=== PATIENT | female | born 1960 | race Caucasian/White ===

== ENCOUNTER 2020-05-06 11:21 | Emergency (ER) | payer OTHER, SELFPAY ==
--- NOTE | ~2020-05-06 | CT_ITS ---
EXAMINATION: CTA chest PE protocol DATE: 05/06/2020 14:14 INDICATION: Shortness of breath, right-sided chest pain. Elevated d-dimer. TECHNIQUE: Computed tomography angiography (CTA) of the chest was performed with 100 mL Omnipaque-350 intravenous contrast timed to evaluate the pulmonary arteries. Coronal maximum intensity projection 3D-reconstructions were created by the technologist. Automated exposure control and iterative reconst ruction technique were employed. Exam dose: 596.53 mGy-cm total exam DLP. COMPARISON: 05/06/2022 view chest FINDINGS: There is moderate enhancement of the pulmonary arteries and no evidence of pulmonary emboli sm. No thoracic aortic aneurysm or dissection. No hilar or mediastinal mass lesion or lymphadenopathy. Normal heart size. No pericardial or pleural effusion. There is a small sliding hiatal hernia. No pulmonary infiltrate or consolidation or pulmonary mass lesion. There is degenerative disc disease and lower cervical spine. There is degenerative spurring of the th oracic spine. IMPRESSION: No evidence of pulmonary embolism Reviewed, dictated and finalized at [facility] Reviewed, dictated and finalized at [facility].
--- NOTE | ~2020-05-06 | US_ITS ---
EXAMINATION: US right upper quadrant DATE: 05/06/2020 15:40 INDICATION: Right upper quadrant abdominal pain. Chest pain. TECHNIQUE: Multiple grayscale and Doppler ultrasound images of the abdomen were obtained. COMPARISON: Chest CT 05/06/2020 FINDINGS: The visualized portions of the head of the pancreas are normal. The liver is normal without focal lesion. There is normal flow in main portal vein. The gallbladder is distended. No visible gal lstones. Gallbladder wall thickening is noted. There was no sonographic Ballesteros sign. The common duct is normal and measures 3 mm. IMPRESSION: 1. Gallbladder distention and gallbladder wall thickening, which is indeterminate for acute cholecyst itis. Gallbladder wall thickening may also be seen with chronic cholecystitis, chronic liver disease, or interstitial edema. Consider hepatobiliary scintigraphy. Reviewed, dictated and finalized at [facility]. IMPRESSION: 1. Gallbladder distention and gallbladder wall thickening, which is indetermina te for acute cholecystitis. Gallbladder wall thickening may also be seen with c hronic cholecystitis, chronic liver disease, or interstitial edema. Consider he patobiliary scintigraphy.
--- NOTE | ~2020-05-06 | XR_ITS ---
XR chest 2V DATE: 05/06/2020 12:16 INDICATION: Midsternal chest pain TECHNIQUE: AP and lateral views COMPARISON: None FINDINGS: Normal heart size. No hilar or mediastinal enlargement. No pulmonary infiltrate or consolid ation, pleural effusion or pulmonary vascular congestion or pneumothorax. Diffuse osteopenia. There is mild degenerative spurring of the thoracic and lumbar spine. IMPRESSION: No active cardiopulmonary disease Reviewed, dictated and finalized at [facility].
[2020-05-06 11:32] VITALS: BP 171/88; PULSE 107; RESP 18; TEMP 36.4; O2SAT 100
--- NOTE | 2020-05-06 11:32 | ECG_ITS ---
Measurements Intervals [place] Rate: 106 P: 61 AK: 130 QRS: -35 QRSD: 95 T: 31 QT: 338 QTc: 449 Interpretive Statements SINUS TACHYCARDIA POSSIBLE LEFT ATRIAL ENLARGEMENT LEFT AXIS DEVIATION BORDERLINE R WAVE PROGRESSION, ANTERIOR LEADS BORDERLINE T WAVE ABNORMALITY- INFERIOR LEADS BASELINE ARTIFACT- II, III, AVR, AVL, AVF, V6 ABNORMAL ECG Electronically Signed On 05-06-2020 11:49:11 CDT by Eric Christianson D.O.
[2020-05-06 11:43] LABS: Basophils Absolute Auto 0.1 K/mm3 (0.0-0.1); Basophils Percent Auto 0.6 % (0.2-1.2); Eosinophils Absolute Auto 0.2 K/mm3 (0-0.3); Eosinophils Percent Auto 1.8 % (0-4.4); Hematocrit 49.6 % (37.0-47.0); Immature Granulocyte Absolute 0.02 K/mm3 (0.00-0.031); Immature Granulocyte Percent A 0.2 % (0-0.5); Lymphocytes Absolute Auto 2.39 K/mm3 (0.9-3.2); Lymphocytes Percent Auto 28.9 % (18.3-44.2); Mean Corpuscular HGB Conc 32.3 g/dl (32-36); Mean Corpuscular Hemoglobin 29.3 pg (26-34); Mean Corpuscular Volume 90.7 fl (80-100); Mean Platelet Volume 9.7 fl (7.4-10.4); Monocytes Absolute Auto 0.4 K/mm3 (0.1-0.6); Monocytes Percent Auto 4.8 % (2.6-8.5); Neutrophils Absolute Auto 5.3 K/mm3 (1.3-6.7); Neutrophils Percent Auto 63.7 % (45.5-73.1); Platelet Count Result 286 k/mm3 (150-375); Red Blood Count 5.47 M/mm3 (4.2-5.4); Red Cell Distribution Width 13.2 % (11.5-14.5); White Blood Count 8.3 K/mm3 (4.5-10.0)
[2020-05-06] MEDS: ASPIRIN 81 MG CHEWABLE TABLET 324 MG PO (11:48)
[2020-05-06 11:54] LABS: Anion Gap 8 mmol/L (8-16); Blood Urea Nitrogen 10 mg/dL (7-17); Calcium 9.2 mg/dL (8.4-10.2); Carbon Dioxide 29 mmol/L (22-30); Chloride 103 mmol/L (98-107); Estimated CRCL calculation 76 ml/min; Estimated Glomerular Filt Rate > 60; Glucose 110 mg/dL (65-105); Potassium 3.7 mmol/L (3.4-5.0); Sodium 140 mmol/L (137-145)
--- NOTE | 2020-05-06 11:56 | ECG_ITS ---
Measurements Intervals [place] Rate: 96 P: 59 MD: 125 QRS: -33 QRSD: 100 T: 29 QT: 352 QTc: 446 Interpretive Statements SINUS RHYTHM WITH SINUS ARRHYTHMIA LEFT AXIS DEVIATION LOW QRS VOLTAGE IN PRECORDIAL LEADS BORDERLINE T WAVE ABNORMALITY- INFERIOR LEADS BASELINE WANDER- I, V6 BORDERLINE ECG Electronically Signed On 05-06-2020 12:12:08 CDT by Eric Christianson D.O.
[2020-05-06 11:58] LABS: INR 0.9; Prothrombin Time 12.2 Seconds (11.1-14.7)
[2020-05-06 11:59] LABS: Partial Thromboplastin Time 23.7 SECONDS (22.3-36.8)
[2020-05-06 12:05] LABS: Troponin I < 0.012 ng/mL (0.000-0.034)
--- NOTE | 2020-05-06 12:21 | PC.NURSE ---
CALLED LAB TO ADD ON D-DIMER.
[2020-05-06 12:26] LABS: D Dimer 0.55 ug/mL (<0.48)
[2020-05-06] MEDS: KETOROLAC 30 MG/ML VIAL (*BKC) IV PUSH (12:39)
--- NOTE | 2020-05-06 12:56 | ED.CHESTPAIN ---
HPI - Chest Pain General Chief Complaint: Chest Pain Stated Complaint: chest pain Time Seen by Provider: 05/06/20 11:32 Source: patient Mode of arrival: ambulatory Limitations: no limitations History of Present Illness HPI narrative: 59-year-old female generally in good health Complains of onset of right sided lower chest pain since about 8:00 last night which feels like somebody is spearing her in the chest and radiates into the back Started after dinner but did not seem to be caused by dinner according to her Symptoms subsided but did not completely resolve overnight and then came back while she was at work She tried walking around which did not help, although it did not make things worse either She has a little nausea no vomiting, no diaphoresis, no shortness of breath Her blood pressure was checked and noted to be mildly high, she usually does not have high blood pressure, nor does she smoke have diabetes or high cholesterol MD complaint: chest pain Onset (ago): hour(s) Pain location: right chest Pain radiation: back Related Data Allergies Allergy/AdvReac Type Severity Reaction Status Date / Time acetaminophen [From Percocet] AdvReac Nausea and Verified 05/06/20 11:46 Vomiting hydrocodone [From Vicodin] AdvReac Dizziness Verified 05/06/20 11:47 oxycodone [From Percocet] AdvReac Nausea and Verified 05/06/20 11:46 Vomiting Review of Systems Review of Systems: All systems reviewed & are unremarkable except as noted in HPI and below Constitutional: Constitutional: Denies chills, Denies fatigue, Denies fever(s), Denies headache(s) and Denies weakness Eyes: Eyes: Denies change in vision and Denies other visual disturbances ENT: Denies headache(s), Denies epistaxis, Denies nasal congestion and Denies sore throat Cardiovascular: Cardiovascular: Reports chest pain, Denies leg edema, Denies palpitations and Denies dyspnea Respiratory: Respiratory: Denies cough, Denies dyspnea and Denies wheezing Gastrointestinal: Gastrointestinal: Denies abdominal pain, Denies diarrhea, Reports nausea and Denies vomiting Genitourinary: Genitourinary: Denies hematuria, Denies urinary frequency and Denies dysuria Musculoskeletal: Musculoskeletal: Denies deformity, Denies arthralgias, Denies joint swelling, Denies muscle weakness and Denies numbness Integumentary/Breasts: Skin/Breast: Denies rash, Denies unusual bruising and Denies wounds Neurologic: Denies Abnormal speech present, Denies headache(s), Denies focal weakness, Denies numbness and Denies weakness Psychiatric: Psychiatric: Reports no additional psychiatric complaints Endocrine: Endocrine: Denies fatigue and Denies palpitations Hematologic/Lymphatic: Hematologic/Lymphatic: Denies easy bleeding and Denies easy bruising Allergic/Immunologic: Allergic/Immunologic: Denies wheezing PMFSH Family History Family History (Updated 10/15/16 @ 23:56 by DOCTOR UNKNOWN) Mother Hypertension Family history of elevated blood lipids No family history of diabetes mellitus Father Carcinoma of colon, Onset Age: 69 Patient's father is Social History Social History Alcohol intake: current Exam Const: General: healthy appearing, no acute distress, well developed and awake Nutritional Appearance: well nourished Orientation/consciousness: patient oriented x3 (alert) Limitations: no limitations HENMT: Head: normocephalic and atraumatic Ears: external ears normal General nose exam: No nasal discharge present and no epistaxis Face and sinus: face symmetric Mouth: Yes lip normal and Yes moist mucous membranes Throat: posterior oropharynx normal Eyes: Conjunctivae: conjunctivae normal Sclera: sclerae normal EOM: EOMs intact bilaterally Neck: Neck: normal visual inspection, supple and no JVD Chest: Chest palpation & inspection: tenderness other (There is tenderness over the lower right chest over the ribs and costochondral junction whi
[2020-05-06 14:17] LABS: Alanine Aminotransferase 52 U/L (4-35); Albumin Level 4.6 g/dL (3.5-5.1); Alkaline Phosphatase 125 U/L (38-126); Aspartate Amino Transferase 64 U/L (14-36); Bilirubin,Total 0.8 mg/dL (0.2-1.3); Lipase 203 U/L (23-300)
[2020-05-06 14:55] LABS: Troponin I < 0.012 ng/mL (0.000-0.034)
== END 2020-05-06 17:42 | disposition home or self-care (01) ==
PROVIDERS: Emergency Provider Emergency Medicine
DX: R07.89 Other chest pain (principal); R93.2 Abnormal findings on diagnostic imaging of liver and biliary tract; R00.0 Tachycardia, unspecified; R94.31 Abnormal electrocardiogram [ECG] [EKG]
CPT/HCPCS: 36415; 71046; 71275; 76705; 80048; 80076; 83690; 84484; 85025; 85380; 85610; 85730; 93005; 96374; 99284; A9270; J1885; Q9967